=== PATIENT | female | born 1990 | race Caucasian/White ===

== ENCOUNTER 2020-05-04 06:56 | Day surgery (SDC) | payer OTHER, SELFPAY ==
[2020-05-04] VITALS (14 sets, daily range): BP systolic 100–134; BP diastolic 51–91; PULSE 65–106; RESP 12–20; TEMP 36.6–37; O2SAT 97–100
--- NOTE | ~2020-05-04 | CT_ITS ---
EXAMINATION: CT abdomen pelvis w con DATE: 05/04/2020 08:18 INDICATION: Right lower quadrant abdominal pain. TECHNIQUE: Computed tomography (CT) of the abdomen and pelvis was performed with 100 mL Omnipaque-350 intravenous contrast. Automated exposure control and iterative reconstruction technique were employe d. The dose-length product was 400.73 mGy-cm. COMPARISON: None FINDINGS: Calcified right lower lobe nodule consistent with old granulomatous disease. Heart size is normal. No pericardial or pleural effusion. Liver, gallbladder, spleen, pancreas, bilateral adrenal glands and kidneys are normal. There is an appendicolith in the proximal appendix with dilation of the more dist al appendix to 8 mm with mucosal hyperemia and surrounding inflammatory stranding and small amount of nonloculated fluid consistent with acute appendicitis. No abscess or free intraperitoneal gas. Remai nder of the bowels are unremarkable. Bladder is normal. 2.3 cm fibroid arising from the posterior low er uterine segment. And 3.2 cm fibroid at the fundus. 2.5 cm left adnexal cyst. Small amount of eithe r reactive or physiologic free fluid in the cul-de-sac. No pathologically enlarged mild lumbar levocu rvature. lymphadenopathy. IMPRESSION: 1. Acute appendicitis. Dr. Soler discussed these findings with Dr. Infante at 8:47 AM. 2. Uterine fibroids. Reviewed, dictated and finalized at location A. IMPRESSION: 1. Acute appendicitis. Dr. Soler discussed these findings with Dr. Naresh jackson t 8:47 AM. 2. Uterine fibroids.
--- NOTE | 2020-05-04 07:34 | ED.ABDPAIN ---
HPI - Abdominal Pain General Chief Complaint: Abdominal Pain Stated Complaint: Abd pain Time Seen by Provider: 05/04/20 07:11 Source: patient Mode of arrival: ambulatory Limitations: no limitations History of Present Illness HPI narrative: Patient is a 29-year-old female complaining of right lower quadrant pain that started this morning, 4 out of 10, sharp, nonradiating accompanied by diarrhea described as loose watery nonbloody. Denies any nausea vomiting or fever. Denies any vaginal bleeding or discharge. Last menstrual period was last week Related Data Home Medications Medication Instructions Recorded Confirmed norethindrone 1 mg-ethinyl 1 tablet PO DAILY 07/31/19 estradiol 20 mcg (21)-iron 75 mg (7) tablet Allergies Allergy/AdvReac Type Severity Reaction Status Date / Time No Known Allergies Allergy Verified 05/04/20 07:38 Review of Systems Review of Systems: All systems reviewed & are unremarkable except as noted in HPI and below Constitutional: Constitutional: Denies body ache(s), Denies chills, Denies excessive sweating, Denies fatigue, Denies fever(s), Denies headache(s), Denies lethargy, Denies malaise, Denies weakness and Denies weight loss Eyes: Eyes: Denies blurry vision, Denies change in vision and Denies loss of vision ENT: Denies dizziness, Denies ear discharge, Denies headache(s), Denies lip swelling, Denies epistaxis, Denies nasal congestion, Denies neck pain, Denies throat swelling and Denies tongue swelling Cardiovascular: Cardiovascular: Denies chest pain, Denies chest pain at rest, Denies chest pain with activity, Denies diaphoresis, Denies rapid heart rate, Denies edema, Denies irregular heart rhythm, Denies lightheadedness, Denies palpitations, Denies dyspnea and Denies dyspnea on exertion Respiratory: Respiratory: Denies chest congestion, Denies cough, Denies hemoptysis, Denies dyspnea and Denies dyspnea on exertion Gastrointestinal: Gastrointestinal: Denies melena, Denies hematochezia, Denies diarrhea, Denies nausea, Denies vomiting and Denies hematemesis Musculoskeletal: Musculoskeletal: Denies abnormal gait, Denies deformity, Denies joint swelling, Denies limited range of motion, Denies neck pain and Denies numbness Neurologic: Denies Abnormal speech present, Denies abnormal gait, Denies confusion, Denies dizziness, Denies headache(s), Denies focal weakness, Denies loss of vision, Denies numbness, Denies Other visual disturbances, Denies Sensory deficit (Neuro) and Denies weakness Psychiatric: Psychiatric: Denies confusion, Denies depression, Denies auditory hallucinations, Denies homicidal ideation and Denies suicidal ideation Endocrine: Endocrine: Denies cold intolerance, Denies excessive sweating, Denies fatigue, Denies heat intolerance and Denies palpitations Hematologic/Lymphatic: Hematologic/Lymphatic: Denies easy bleeding and Denies easy bruising Allergic/Immunologic: Allergic/Immunologic: Denies lip swelling, Denies throat swelling and Denies tongue swelling PMFSH Past Medical History Medical History (Updated 05/04/20 @ 09:11 by Brandon Infante MD) Allergic asthma Exercise induced bronchospasm Pneumothorax on left Family History Family History (Updated 07/31/19 @ 15:27 by Smiley Rod MD) Grandparent Breast cancer Social History Social History (Updated 08/30/19 @ 17:17 by Cece Skinner) Smoking status: Never smoker Second hand tobacco smoke exposure: No Alcohol intake: current Substance use: never Substance use type: does not use Gender identity (if verbalized by the patient): Female Exam Const: General: cooperative, healthy appearing, comfortable, no acute distress, well developed, alert and awake; No confusion Orientation/consciousness: oriented to person, oriented to place, oriented to time, patient oriented x3 and No confusion Limitations: no limitations HENMT: Head: normal to inspection, normocephalic a
[2020-05-04 07:39] LABS: Basophils Percent Auto 0.3 % (0.2-1.2); Eosinophils Absolute Auto 0.2 K/mm3 (0-0.3); Eosinophils Percent Auto 1.6 % (0-4.4); Hematocrit 39.9 % (37.0-47.0); Hemoglobin 13.2 g/dL (12.0-15.0); Immature Granulocyte Absolute 0.05 K/mm3 (0.00-0.031); Immature Granulocyte Percent A 0.3 % (0-0.5); Lymphocytes Absolute Auto 1.17 K/mm3 (0.9-3.2); Lymphocytes Percent Auto 7.6 % (18.3-44.2); Mean Corpuscular HGB Conc 33.1 g/dl (32-36); Mean Corpuscular Hemoglobin 30.1 pg (26-34); Mean Corpuscular Volume 90.9 fl (80-100); Monocytes Absolute Auto 0.9 K/mm3 (0.1-0.6); Monocytes Percent Auto 6.1 % (2.6-8.5); Neutrophils Percent Auto 84.1 % (45.5-73.1); Platelet Count Result 242 k/mm3 (150-375); Red Blood Count 4.39 M/mm3 (4.2-5.4); Red Cell Distribution Width 12.2 % (11.5-14.5); White Blood Count 15.5 K/mm3 (4.5-10.0)
[2020-05-04 07:41] LABS: Add Urine Microscopic? NO; Appearance Urine Clear (Clear); Bilirubin Urine Negative (Negative); Blood Urine Negative (Negative); Color Urine Yellow (Yellow); Glucose Urine UA Negative (Negative); Ketones Urine Negative (Negative); Leukocyte Esterase Ur Negative LEU/UL (Negative); Nitrate Urine Negative (Negative); Protein Urine Negative (Negative); Specific Grav Ur 1.019 (1.001-1.035); Urobilinogen Urine Negative mg/dL (<2.0)
[2020-05-04 07:49] LABS: Alanine Aminotransferase 23 U/L (4-35); Albumin Level 4.3 g/dL (3.5-5.1); Alkaline Phosphatase 45 U/L (38-126); Anion Gap 7 mmol/L (8-16); Aspartate Amino Transferase 32 U/L (14-36); Bilirubin,Total 0.5 mg/dL (0.2-1.3); Blood Urea Nitrogen 8 mg/dL (7-17); Calcium 9.1 mg/dL (8.4-10.2); Carbon Dioxide 28 mmol/L (22-30); Chloride 104 mmol/L (98-107); Estimated CRCL calculation 89 ml/min; Estimated Glomerular Filt Rate > 60; Glucose 95 mg/dL (65-105); Lipase 115 U/L (23-300); Potassium 3.9 mmol/L (3.4-5.0); Sodium 139 mmol/L (137-145)
[2020-05-04] MEDS: LACTATED RINGERS 1,000 ML 999 ML IV CONT (08:28)
--- NOTE | 2020-05-04 09:33 | PM.IMHP ---
H&P: HPI History of Present Illness Date/Time: 05/04/20 09:33 Chief complaint: Abd pain Narrative: Maxine Harmon is a 29 year old female who states that she was feeling fine when she went to bed last night. She had a meal about 7 or 8:00 p.m. with some chicken and rice. She woke early this morning about 0 400 with some cramping and lower abdominal pain. As she woke up more the pain seemed to localize in the right lower quadrant specially with compression on that side. Her younger sister had appendicitis when she was in [place] so the patient thought of this called her mother in came to the ER for evaluation. Workup in the emergency room shows an elevated white count and CT scan of the abdomen and pelvis revealed a dilated appendix with an appendicolith. It was the radiologist's impression that she had acute appendicitis without signs of perforation or abscess. She also has some uterine fibroids and a possible 2.5 cm left ovarian cyst. No other abnormalities in the abdomen and pelvis. Review of Systems Constitutional: Constitutional: Reports as per HPI and Denies headache(s) Eyes: Eyes: Denies loss of vision and Denies eye pain ENT: Reports Normal hearing present, Denies change in voice, Denies dizziness and Denies headache(s) Cardiovascular: Cardiovascular: Denies chest pain and Denies dyspnea Respiratory: Respiratory: Denies dyspnea and Denies wheezing Comments: History of asthma without recent problems. She does have a abuse or all inhaler available and has it with her. If she is having some allergy issues she takes this once a day in the morning but has not had to do this in last 3 days. Gastrointestinal: Gastrointestinal: Reports abdominal pain (Mainly across the lower abdomen.), Denies hematochezia, Denies fecal incontinence and Denies vomiting Genitourinary: Genitourinary: Reports menorrhagia (On control pills to control this to some degree.) Musculoskeletal: Musculoskeletal: Denies back pain and Denies arthralgias Neurologic: Reports Normal hearing present, Denies dizziness, Denies headache(s), Denies loss of vision and Denies memory loss Psychiatric: Psychiatric: Denies memory loss and Denies panic attacks Endocrine: Endocrine: Reports no additional endocrine complaints Hematologic/Lymphatic: Hematologic/Lymphatic: Reports no additional hematologic/lymphatic complaints Allergic/Immunologic: Allergic/Immunologic: Denies wheezing PMFSH Past Medical History Medical History Allergic asthma Exercise induced bronchospasm Pneumothorax on left Family History Family History Grandparent Breast cancer Social History Social History Smoking status: Never smoker Second hand tobacco smoke exposure: No Alcohol intake: current Substance use: never Substance use type: does not use Gender identity (if verbalized by the patient): Female Meds Home Medications and Allergies Home Medications Medication Instructions Recorded Confirmed Type norethindrone 1 mg-ethinyl 1 tablet PO DAILY 07/31/19 History estradiol 20 mcg (21)-iron 75 mg (7) tablet montelukast 10 mg tablet 10 mg PO DAILY #90 tablet 08/30/19 08/30/19 Rx fluticasone 250 mcg-salmeterol 50 1 inhalation INHALATION BID #60 10/08/19 Rx mcg/dose blistr powdr for each inhalation Allergies Allergy/AdvReac Type Severity Reaction Status Date / Time No Known Allergies Allergy Verified 05/04/20 07:38 Vital Signs Vital Signs - 24 hr 05/04/20 07:01 Temperature 36.6 C Pulse Rate 96 Respiratory Rate 20 Blood Pressure 128/84 Pulse Oximetry 100 Exam Const: General: cooperative, healthy appearing, comfortable, no acute distress, well developed, alert and awake Nutritional Appearance: well nourished Orientation/consciousness: pat
--- NOTE | 2020-05-04 13:09 | WPDANESEPPF ---
Anes - Initial Pre Proc Eval Procedure: Operation Date: 05/04/20 11:00 Proposed Procedures p Laparoscopic Appendectomy - Hansel Skinenr MD Date/Time: 05/04/20 13:09 Surgeon: Hansel Skinner MD Pre Op Diagnosis: Abd pain Patient Data Age: 29 Gender: F Height: 5 ft 7 in Weight: 74.8 kg Last Vital Signs Temp 37.0 C 05/04/20 12:51 Pulse 71 05/04/20 12:51 Resp 20 05/04/20 12:51 BP 114/66 05/04/20 12:51 Pulse Ox 98 05/04/20 12:51 Allergies Allergy/AdvReac Type Severity Reaction Status Date / Time No Known Allergies Allergy Verified 05/04/20 07:38 Home Medications Medication Instructions Recorded Confirmed Type norethindrone 1 mg-ethinyl 1 tablet PO DAILY 07/31/19 History estradiol 20 mcg (21)-iron 75 mg (7) tablet montelukast 10 mg tablet 10 mg PO DAILY #90 tablet 08/30/19 08/30/19 Rx fluticasone 250 mcg-salmeterol 50 1 inhalation INHALATION BID #60 10/08/19 Rx mcg/dose blistr powdr for each inhalation albuterol sulfate INHALATION 05/04/20 History Laboratory Tests 05/04/20 05/04/20 05/04/20 07:31 07:31 07:31 WBC 15.5 K/mm3 H K/mm3 (4.5-10.0) RBC 4.39 M/mm3 M/mm3 (4.2-5.4) Hgb 13.2 g/dL g/dL (12.0-15.0) Hct 39.9 % % (37.0-47.0) MCV 90.9 fl fl (80-100) MCH 30.1 pg pg (26-34) MCHC 33.1 g/dl g/dl (32-36) RDW 12.2 % % (11.5-14.5) Plt Count 242 k/mm3 k/mm3 (150-375) MPV 12.0 fl H fl (7.4-10.4) Immature Gran % (Auto) 0.3 % % (0-0.5) Neut % (Auto) 84.1 % H % (45.5-73.1) Lymph % (Auto) 7.6 % L % (18.3-44.2) Walsh % (Auto) 6.1 % % (2.6-8.5) Eos % (Auto) 1.6 % % (0-4.4) Baso % (Auto) 0.3 % % (0.2-1.2) Lymph # (Auto) 1.17 K/mm3 K/mm3 (0.9-3.2) Walsh # (Auto) 0.9 K/mm3 H K/mm3 (0.1-0.6) Eos # (Auto) 0.2 K/mm3 K/mm3 (0-0.3) Baso # (Auto) 0.0 K/mm3 K/mm3 (0.0-0.1) Abs Immat Gran (auto) 0.05 K/mm3 H K/mm3 (0.00-0.031) Absolute Neuts (auto) 13.0 K/mm3 H K/mm3 (1.3-6.7) Absolute Nucleated RBC 0.0 K/mm3 K/mm3 (0.0-0.012) Nucleated RBC % 0.0 % % (0.0-0.2) Sodium 139 mmol/L mmol/L (137-145) Potassium 3.9 mmol/L mmol/L (3.4-5.0) Chloride 104 mmol/L mmol/L (98-107) Carbon Dioxide 28 mmol/L mmol/L (22-30) Anion Gap 7 mmol/L L mmol/L (8-16) BUN 8 mg/dL mg/dL (7-17) Creatinine 0.80 mg/dL mg/dL (0.7-1.0) Estim Creat Clear Calc 89 ml/min ml/min Estimated GFR > 60 (59 - ) Glucose 95 mg/dL mg/dL (65-105) Calcium 9.1 mg/dL mg/dL (8.4-10.2) Total Bilirubin 0.5 mg/dL mg/dL (0.2-1.3) AST 32 U/L U/L (14-36) ALT 23 U/L U/L (4-35) Alkaline Phosphatase 45 U/L U/L (38-126) Total Protein 7.0 g/dL g/dL (6.3-8.2) Albumin 4.3 g/dL g/dL (3.5-5.1) Lipase 115 U/L U/L (23-300) Urine Color Yellow (Yellow) Urine Appearance Clear (Clear) Urine pH 5.0 (5.0-9.0) Ur Specific [place] 1.019 (1.001-1.035) Urine Protein Negative mg/dL mg/dL (Negative) Urine Glucose (UA) Negative mg/dL mg/dL (Negative) Urine Ketones Negative mg/dL mg/dL (Negative) Ur Blood (Man) Negative (Negative) Urine Nitrate Negative (Negative) Urine Bilirubin Negative (Negative) Urine Urobilinogen Negative mg/dL mg/dL (<2.0) Leukocyte Esterase Rfl Negative KUSH/UL KUSH/UL (Negative) Patient hx anesthesia problems: none Family hx anesthesia problems: none PMFSH Past Medical History Medical History Allergic asthma (Unknown) Exercise induced broncho
[2020-05-04] MEDS: BUPIVACAINE/EPINEPHRINE 0.5% 10 ML VIAL 30 ML INFILTRATE (13:21)
--- NOTE | 2020-05-04 14:58 | PM.PROC ---
Procedure Note - Detailed Date of procedure: 05/04/20 Pre-op diagnosis: Abd pain 1. Acute appendicitis without peritonitis or gangrene 2. Known uterine fibroids 3. 2.5 cm left ovarian cyst Post-op diagnosis: same Procedure performed: Laparoscopic Appendectomy Description of procedure: The patient was seen in the Emergency Room. The risks, benefits, complications, treatment options, and expected outcomes were discussed with the patient and/or family. The possibilities of reaction to medication, pulmonary aspiration, perforation of viscus, bleeding, recurrent infection, finding a normal appendix, the need for additional procedures, failure to diagnose a condition, and creating a complication requiring transfusion or operation were discussed. There was concurrence with the proposed plan and informed consent was obtained. The site of surgery was properly noted/marked. The patient was taken to Operating Room, and a time out was preformed which identified this as the proper patient, and the procedure verified as laparoscopic appendectomy, possible open. The patient was placed in the supine position and general anesthesia was induced, along with placement of orogastric tube, SCD hose, and a Montez catheter. The abdomen was prepped and draped in a sterile fashion. A 5 mm umbilical incision was made and the peritoneal cavity was accessed using the Veress needle technique. Once the abdomen was insufflated to 14 mmHg pressure a 5 mm XL trocar over the 0? 5 mm scope was carefully twisted into the abdomen via the umbilicus. The pneumoperitoneum was then established to steady pressure of 14 mm Hg. A 12 mm laparoscopic port was placed through a transverse suprapubic incision. An additional 5 mm cannula was then placed in the left upper quadrant of the abdomen at a site above the level the umbilicus and slightly to the left of midline under direct vision. A careful evaluation of the entire abdomen was carried out. There was no obvious purulence in the pelvis or around the appendix and cecum. There was a left ovarian cyst whitish in color was 2.5 cm in size the right ovary appeared fairly normal. The uterus was somewhat enlarged with a larger is fibroid off the body of the uterus and a small 1 off the lower portion of the uterus near the junction with the cervix. The patient was placed in Trendelenburg and left lateral decubitus position. The small intestines were retracted in the cephalad and left lateral direction away from the pelvis and right lower quadrant. The patient was found to have an enlarged and inflamed appendix that was extending into the right side and lateral to the cecum whih was situatated firly high in the right abdomen. There was no evidence of perforation. The appendix was carefully dissected. Once it was free a 60 mm ethicon [place] endogastroentestinal stapler with a vascular load was placed across the mesoappendix. This was fired and hemostasis was checked along the staple line and appeared to be adequate. Then another cartridge containing a vascular load applied and the stapler then placed right to the base of the appendix. This was also fired and bleeding was checked. This was done because it appeared originally that we simply the lower half the appendix from the cecum and the appendiceal vessels were still needing to be divided. The appendix was then divided at its base using the same 60 mm stapler with a 3.5 mm bowel wall load. Minimal appendiceal stump was left in place. There was no evidence of bleeding, leakage, or complication after division of the appendix at its junction with the cecum.. The appendix was then placed in an endobag which had been brought through the 12 mm suprapubic port site. The appendix and the bag were then extracted through this larger port site in the suprapubic position. The suprapubic port site was closed using a #1 Polysorb suture passed with a Klaus-Machado cone and needle suture passer at the level of the f
[2020-05-04] MEDS: LACTATED RINGERS 1,000 ML 30 ML IV CONT ×2 (15:02)
--- NOTE | 2020-05-04 15:04 | SUR.OPER ---
EBL:5cc, urine:500cc
[2020-05-04] MEDS: ONDANSETRON INJ 4 MG/2 ML VIAL IV PUSH ×2 (15:14→17:10)
[2020-05-04] MEDS: fentaNYL CITRATE INJ (*CRX) 100 MCG/2 ML VIAL 25 MCG IV PUSH ×6 (15:17→15:44)
[2020-05-04] MEDS: KETOROLAC 15 MG/ML VIAL (*BKC) IV PUSH (15:21)
--- NOTE | 2020-05-04 15:42 | SUR.PHASEI ---
PT AWAKE, RESTING QUIETLY. PT NO LONGER GRIMACING, BECOMING TALKATIVE.
--- NOTE | 2020-05-04 16:01 | SUR.PHASEI ---
PT RESTING QUIETLY. RELAXED. STATES PAIN BETTER NOW AT 4-5/10 AND TOLERABLE.
--- NOTE | 2020-05-04 16:07 | SUR.PHASEI ---
PT AWAKE AND ALERT. STATES SHE IS FEELING MUCH BETTER NOW AND READY TO SIT IN [facility] AND HAVE A DRINK. MEETS DISCHARGE CRITERIA.
--- NOTE | 2020-05-04 16:42 | SUR.PHASEII ---
PT SITTING IN [facility]. STATES PAIN MILD AND TOLERABLE AT 4-5/10. STATES NAUSEA HAS RETURNED. SIPPING [place] [place]. DR BOWLING/MONISHA HOLLIS LUMBER LOADER NOTIFIED. ORDERS RECEIVED.
[2020-05-04] MEDS: diphenhydrAMINE HCl INJ 50 MG/ML VIAL 12.5 MG IV PUSH (16:46)
[2020-05-04] MEDS: SCOPOLAMINE 1.5 MG PATCH TRANSDERM (16:48)
--- NOTE | 2020-05-04 17:14 | SUR.PHASEII ---
PT AWAKE AND ALERT. STATES PAIN MILD AND TOLERABLE. STATES NAUSEA MUCH BETTER. 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 GIVEN IV.
--- NOTE | 2020-05-04 17:47 | SUR.PHASEII ---
PT DRESSED AND READY TO GO. MEETS DISCHARGE CRITERIA. STATES NAUSEA MUCH BETTER.
== END 2020-05-04 17:47 | disposition home or self-care (01) ==
LOC: ANHED 09:11 → ANHSURGERY 11:16
PROVIDERS: Emergency Provider Emergency Medicine; PCP Family Medicine; Visit Provider Surgery
PROC: 0DTJ4ZZ Resection of Appendix, Percutaneous Endoscopic Approach (ICD-10-PCS; CPT 44970; principal; 2020-05-04 11:00)
DX: K35.30 Acute appendicitis with localized peritonitis, without perforation or gangrene (principal); D25.9 Leiomyoma of uterus, unspecified; J45.909 Unspecified asthma, uncomplicated
CPT/HCPCS: 44970; 36415; 74177; 80053; 81003; 81025; 83690; 85025; 88304; 96361; 96374; 99285; A9270; J1100; J1200; J1885; J2250; J2405; J2704; J3010; J7030; J7120; Q9967

== ENCOUNTER 2021-01-22 08:23 | Outpatient (CLI) | payer OTHER, SELFPAY ==
--- NOTE | ~2021-01-22 | XR_ITS ---
XR chest 2V DATE: 01/22/2021 08:54 INDICATION: Cough for a couple of weeks TECHNIQUE: PA and lateral views COMPARISON: None FINDINGS: An approximately 11 mm peripheral right lower lung opacity is noted in addition to several right mid and lower lung subcentimeter nodular densities. The lungs are clear of infiltrate or consolidation. No pleural effusion or pulmonary vascular congest ion or pneumothorax. Normal heart size. No hilar or mediastinal enlargement. Skeletal structures are unremarkable. IMPRESSION: Occasional nonspecific right mid and lower lung pulmonary nodules; recommend comparison w ith prior chest radiographs, if available. Reviewed, dictated and finalized at location A. IMPRESSION: Occasional nonspecific right mid and lower lung pulmonary nodules; recommend comparison with prior chest radiographs, if available.
== END 2021-01-22 08:24 | disposition home or self-care (01) ==
PROVIDERS: PCP Family Medicine; Visit Provider Physician Assistant
DX: R05 Cough (principal); R91.8 Other nonspecific abnormal finding of lung field
CPT/HCPCS: 71046

== ENCOUNTER → 2021-04-08 02:48 | Outpatient (CLI) | payer OTHER, SELFPAY ==
[2021-04-09 07:19] LABS: SARS-CoV-2 RNA PCR Negative
== END ==
PROVIDERS: PCP Family Medicine; Visit Provider Family Medicine
DX: R68.89 Other general symptoms and signs (principal); Z20.822 Contact with and (suspected) exposure to COVID-19
CPT/HCPCS: C9803; U0003; U0005

== ENCOUNTER 2021-05-29 08:13 | Outpatient (CLI) | payer OTHER, SELFPAY ==
--- NOTE | ~2021-05-29 | XR_ITS ---
EXAMINATION: XR chest 2V DATE: 05/29/2021 08:29 INDICATION: Shortness of breath. Abnormal chest radiographs. TECHNIQUE: Frontal and lateral views of the chest were obtained. COMPARISON: Chest 2 views 01/22/2021, CT abdomen and pelvis 05/04/2020 FINDINGS: Calcified right lung nodules are consistent with old granulomatous disease. No pleural effu parviz or pneumothorax. The heart size is normal. IMPRESSION: 1. No acute cardiopulmonary disease. Reviewed, dictated and finalized at location A. 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
== END 2021-05-29 08:14 | disposition home or self-care (01) ==
PROVIDERS: PCP Family Medicine; Visit Provider Family Medicine
DX: R93.89 Abnormal findings on diagnostic imaging of other specified body structures (principal)
CPT/HCPCS: 71046